=== PATIENT | female | born 1960 | race Caucasian/White ===

== ENCOUNTER 2024-03-03 11:13 | Emergency (ER) | payer OTHER, SELFPAY ==
[2024-03-03 11:17] VITALS: BP 147/100; PULSE 73; TEMP 36.1; O2SAT 98; BMI 52.1
--- NOTE | 2024-03-03 11:30 | ED_ITS ---
HPI HPI - General Adult General Chief complaint: Abdominal Pain Stated complaint: ABDOMINAL PAIN Time Seen by Provider: 03/03/24 11:16 Source: patient Mode of arrival: walk-in History of Present Illness HPI narrative: 63-year-old female presents for constipation. She states she has not had a bowel movement in 2 days. She used a suppository and drink some MiraLAX about 2 hours ago. No fever or vomiting. She has had issues with constipation in the past. Related Data Home Medications ?Medication ?Instructions ?Recorded ?Confirmed albuterol sulfate 90 mcg/actuation 1 puff inhalation Q4H PRN 03/03/24 03/03/24 aerosol inhaler shortness of breath or wheezing atorvastatin 20 mg tablet 20 mg PO DAILY 03/03/24 03/03/24 pantoprazole 40 mg tablet,delayed 40 mg PO DAILY 03/03/24 03/03/24 release rivaroxaban 20 mg tablet (Xarelto) 20 mg PO DAILY 03/03/24 03/03/24 semaglutide 2 mg/dose (8 mg/3 mL) 2 mg subcut QWEEK 03/03/24 03/03/24 subcutaneous pen injector (Ozempic) sotalol 120 mg tablet 120 mg PO BID 03/03/24 03/03/24 ursodiol 300 mg capsule 300 mg PO BID 03/03/24 03/03/24 Allergies Allergy/AdvReac Type Severity Reaction Status Date / Time No Known Drug Allergies Allergy Verified 03/03/24 11:25 Opioid HPI Opioid Management Most Recent Opioid Data: No Data to Display Review of Systems ROS Narrative A ten point review of systems is negative except as noted above. Exam Narrative Exam Narrative: Nurses note and vital signs reviewed and patient is not hypoxic. General: The patient appears uncomfortable Skin: Warm, dry, no pallor noted. There is no rash noted. Head: Normocephalic, atraumatic Eye: Normal conjunctiva, no drainage Ears, Nose, Mouth, and Throat: oral mucosa is moist. Nares patent. Cardiovascular: Regular Rate and Rhythm Respiratory: Patient is in no distress, no accessory muscle use, lungs are clear to auscultation, no wheezing, rales or rhonchi Back: non-tender GI: Soft and nondistended Musculoskeletal: The patient has no evidence of calf tenderness, no pitting edema, symmetrical pulses noted bilaterally Neurological: A&O, normal speech Psychiatric: Cooperative Constitutional Vital Signs, click to edit/add: Last Vital Signs Temp 97.0 F L 03/03/24 11:17 Pulse 73 03/03/24 11:17 Resp 22 H 03/03/24 11:17 BP 147/100 H 03/03/24 11:17 Pulse Ox 98 03/03/24 11:17 O2 Del Method Room Air 03/03/24 11:17 Course Vital Signs Vital signs: Vital Signs Temperature 97.0 F L 03/03/24 11:17 Pulse Rate 73 03/03/24 11:17 Respiratory Rate 22 H 03/03/24 11:17 Blood Pressure 147/100 H 03/03/24 11:17 Pulse Oximetry 98 03/03/24 11:17 Oxygen Delivery Method Room Air 03/03/24 11:17 Temperature 97.0 F L 03/03/24 11:17 Pulse Rate 73 03/03/24 11:17 Respiratory Rate 22 H 03/03/24 11:17 Blood Pressure 147/100 H 03/03/24 11:17 Pulse Oximetry 98 03/03/24 11:17 Oxygen Delivery Method Room Air 03/03/24 11:17 Medical Decision Making MDM Narrative Medical decision making narrative: X-ray was consistent with constipation but afterwards she had a large bowel movement and feels back to normal now and she is able to be discharged home. Treatment diagnosis and follow-up were discussed with the patient. Differential Diagnosis Differential Diagnosis: Constipation, abdominal pain Imaging Data Abdominal x-ray: Radiologist's impression: ITS Impressions Abdomen X-Ray 03/03/24 11:30 IMPRESSION: No evidence of obstruction or ileus. Increased amount of stool in the rectum. Electronically authenticated by: ANN NAVARRO Date: 03/03/2024 13:08 Discharge Plan Discharge Stand Alone Forms: Portal Instructions Chief Complaint: Abdominal Pain Clinical Impression: Constipation Patient Disposition: Home, Self-Care Time of Disposition Decision: 13:25 Condition: Good Mode of Transportation: Private Vehicle Prescriptions / Home Meds: No Action albuterol sulfate 90 mcg/actuation HFA aerosol inhaler 1 puff INHALATION Q4H PRN (Reason: shortness of breath or wheezing) atorvastatin 20 mg tablet 20 mg PO DAILY pantoprazole 40 mg tablet,delayed release (DR/EC) 40 mg PO DAILY Xarelto 20 mg tablet 20 mg PO DAILY Ozempic 2 mg/dose (8 mg/3 mL) pen injector 2 mg SUBCUT QWEEK sotalol 120 mg tablet 120 mg PO BID ursodiol 300 mg capsule 300 mg PO BID Print Language: Mauritian Instructions: Constipation (ED) Referrals: KAROL LOYA [Primary Care Provider] - 1 week
--- NOTE | 2024-03-03 11:30 | XR_ITS ---
The [address] [address] Patient Name: SHERRY MARTINEZ MRN: [id number] date: 1960 Sex: F Assigned Patient Location: ER Current Patient Location: ED.MAIN Accession/Order Number: [id number] Exam Date: 03/03/2024 11:45 Report Date: 03/03/2024 13:08 At the request of: ARGENIS VALLADARES Procedure: XR abdomen 1V KUB HISTORY: Abdominal pain. COMPARISON: None. FINDINGS: Nonobstructed nondilated bowel gas pattern. There are no abnormal radiopaque densities in the abdomen or pelvis. There are no acute bony abnormalities. There is an increased amount stool in the rectum. XR/XR abdomen 1V IMPRESSION: No evidence of obstruction or ileus. Increased amount of stool in the rectum. Electronically authenticated by: ANN NAVARRO Date: 03/03/2024 13:08
== END 2024-03-03 13:40 | disposition home or self-care (01) ==
PROVIDERS: Emergency Provider Emergency Medicine; Family Provider Internal Medicine; PCP Internal Medicine
DX: K59.00 Constipation, unspecified (principal); Z79.899 Other long term (current) drug therapy
CPT/HCPCS: 74018; 99283